=== PATIENT | male | born 1965 | race Asian ===

== ENCOUNTER 2021-01-08 21:37 | Emergency (ER) | payer MEDICARE ==
--- NOTE | 2021-01-08 23:14 | Emergency Department Report ---
ED Psych HPI - General Chief Complaint: Psych Stated Complaint: MH Time Seen by Provider: 01/08/21 22:12 Source: patient Mode of arrival: Ambulatory - History of Present Illness Initial Comments: Patient 55-year-old F Zambian male with past medical history schizophrenia who is presenting with suicidal ideations. Patient states that for the last several days he is been having thoughts that he should shoot himself in the head. Patient does not have a gun in the home. Patient states he is compliant with his medications and is not sure why he is having these thoughts. Denies any homicidal ideations. No auditory or visual hallucinations at this time - Related Data Previous Rx's Medication Instructions Recorded Last Taken Type Quetiapine Fumarate [SEROquel] 50 mg PO BID #60 tab 01/09/21 Unknown Rx buPROPion [Wellbutrin] 75 mg PO DAILY #30 tab 01/09/21 Unknown Rx Allergies Allergy/AdvReac Type Severity Reaction Status Date / Time No Known Allergies Allergy Verified 01/08/21 22:00 ED Review of Systems ROS: Stated complaint: MH Other details as noted in HPI Comment: All other systems reviewed and negative ED Past Medical Hx - Past Medical History Previous Medical History?: Yes Hx Hypertension: Yes - Surgical History Past Surgical History?: No - Social History Smoking Status: Never Smoker Substance Use Type: None - Medications Home Medications: Home Medications Medication Instructions Recorded Confirmed Last Taken Type Quetiapine Fumarate [SEROquel] 50 mg PO BID #60 tab 01/09/21 Unknown Rx buPROPion [Wellbutrin] 75 mg PO DAILY #30 tab 01/09/21 Unknown Rx ED Physical Exam - General Limitations: No Limitations General appearance: alert, in no apparent distress - Head Head exam: Present: atraumatic, normocephalic - Eye Eye exam: Present: normal appearance, PERRL, EOMI - ENT ENT exam: Present: mucous membranes moist - Neck Neck exam: Present: normal inspection - Respiratory Respiratory exam: Present: normal lung sounds bilaterally. Absent: respiratory distress, wheezes, rales, rhonchi - Cardiovascular Cardiovascular Exam: Present: regular rate, normal rhythm, normal heart sounds. Absent: systolic murmur, diastolic murmur, rubs, gallop - GI/Abdominal GI/Abdominal exam: Present: soft, normal bowel sounds. Absent: distended, tenderness, guarding, rebound - Rectal Rectal exam: Present: deferred - Extremities Exam Extremities exam: Present: normal inspection - Back Exam Back exam: Present: normal inspection - Neurological Exam Neurological exam: Present: alert, oriented X3 - Psychiatric Psychiatric exam: Present: normal affect, normal mood, suicidal ideation - Skin Skin exam: Present: warm, dry, intact, normal color. Absent: rash ED Course Vital Signs 01/08/21 01/08/21 01/08/21 22:01 22:06 23:35 Temperature 98.5 F 98.0 F Pulse Rate 95 H 75 Respiratory 18 18 Rate Blood Pressure 127/78 133/78 [Right] O2 Sat by Pulse 98 98 Oximetry 01/09/21 01/09/21 01/09/21 01:59 02:00 03:00 Temperature 98.5 F 98.3 F 98.0 F Pulse Rate 106 H 80 68 Respiratory 18 18 19 Rate Blood Pressure 139/97 140/89 133/78 [Right] O2 Sat by Pulse 99 99 100 Oximetry 01/09/21 01/09/21 01/09/21 04:00 05:00 06:00 Temperature 97.0 F L 97.3 F L 97.6 F Pulse Rate 79 81 73 Respiratory 17 18 18 Rate Blood Pressure 140/70 138/70 140/77 [Right] O2 Sat by Pulse 96 97 98 Oximetry 01/09/21 09:04 Temperature 98.8 F Pulse Rate 77 Respiratory 18 Rate Blood Pressure 149/99 [Right] O2 Sat by Pulse 100 Oximetry - Reevaluation(s) Reevaluation #1: 01/08/21 23:42 Patient is medically cleared at this time for mental health assessment Reevaluation #2: 02/20/21 03:45 Psychiatric Consult Note Patient Name: CAL DAVILA Date of : 1965 Patient Status: Emergency Emergency Provider: GABBY MCCLENDON Date: 01/09/21 09:15 Initialization Date: 01/09/21 09:15 History of Present Illness - Reason for Consult Consult date: 01/09/21 Reason for consult: SI, drugs, alcohol - History of Present Psychiatric Illness Cal Davila is a 55y/o male patient who states he was brought to the hospital by the chronic manager of his fdc treatment facility; [facility]. The patient's symptoms seem to correlate with his housing issue. The patient says because he relapsed and they told him he had to get clean before he came back. He says he's been "binge drinking and doing cocaine." The patient says he started feeling suicidal after doing the drugs. When asked was he suicidal, he says "on and off." He then says he's been feeling like this for "about a month and a half." The patient says he is now homeless and "that's what brought on the suicidal thoughts." He is calm, cooperative and polite. He says "I still feel like the drugs are in my system a little." The patient is asking to go to "the [facility] in [place]." I told him that we did not transfer there but he would have to go there himself. He says he was diagnosed with depression and says he ran out of his meds about 2 months ago. He denies hallucinations of any kind. Psych History Diagnoses: MDD Suicide attempts or Self-harm behavior: Denies Prior psychiatric hospitalizations: Yes Substance Abuse history: Cocaine, alcohol Previous psychiatric medications tried: Seroquel, welbutrin Outpatient treatment: not at present PAST MEDICAL HISTORY: none reported Family Psychiatric History: None reported or documented SOCIAL HISTORY Marital Status: Living Arrangements: homeless, recently at "[facility] but told needed to get clean." Employment Status: Unemployed Access to guns/weapons: Denies Education: History of Abuse: Denies Legal History: Denies REVIEW OF SYSTEMS Constitutional: Negative for weight loss ENT: Negative for stridor Respiratory: Negative for cough or hemoptysis All other systems reviewed and are negative MENTAL STATUS EXAMINATION General Appearance and Behavior: Age appropriate, good hygiene, wearing appropriate clothes, calm, cooperative, polite and pleasant Cooperation: cooperative Psychomotor Behavior: unremarkable and within normal limits Mood: okay Affect and affective range: congruent with mood Thought Process: Goal directed Thought Content: None Speech: Normal volume, Regular rate and rhythm, Suicidal Ideation: on and off for about a month and a half Homicidal Ideation: Denies Hallucinations: Denies Delusions: None elicited Impulse Control: Limited Insight and Judgment: Limited Memory: Normal, Attention: Normal Orientation: Alert, oriented Assessment and Plan (1) Cocaine Dependence (2) Major Depressive Disorder Treatment plan Seroquel 50mg po BID Wellbutrin 75mg po daily Risks, benefits and alternatives of medications discussed with the patient, questions answered and consent obtained from patient. PSYCHOTHERAPY: Supportive psychotherapy provided MEDICAL: Per primary team DELIRIUM PRECAUTIONS: Please re-orient patient frequently, keep lights on during the day, and minimize benzodiazepines and opiates as these medications could worsen patient's confusion. MANAGER EXPORT: Defer to primary Disposition: Do not recommend acute psychiatric inpatient treatment. The patient understands that if suicidal thoughts are to reoccur he is to seek immediate assistance. The patient to abstain from all illicit drug use The band splitter to give the patient all necessary outpatient resources including the place he mentioned in [place], drug/alcohol rehab, CBT, med management, shelters and group homes, safety plan Provide transportation pass if needed The patient to abstain from all illicit drug use and alcohol Case staffed with Dr. Yfn LOERA Medical Decision Making - Lab Data Result diagrams: 01/08/21 22:47 01/08/21 22:47 Critical care attestation.: If time is entered above; I have spent that time in minutes in the direct care of this critically ill patient, excluding procedure time. ED Disposition Clinical Impression: Cocaine dependence, Major depressive disorder Disposition: HOME / SELF CARE / HOMELESS Is pt being admited?: No Does the pt Need Aspirin: No Condition: Stable Additional Instructions: SUBSTANCE ABUSE PROGRAMS: [facility]: Location: [place], [place] [facility]! Address: [address] [place] [address] [facility]: Address: [address] [place] [address] [facility]: Address: [address] [place] [address] [facility]: Address: [address] [place] [address] [facility] Address: [address] [place] [address]. Please contact above numbers to attempt placement into free based program. Medicaid Programs: [facility]: Address: [address] [place] [address] [facility]: Address: [address] [place] [address] HOMELESS RESOURCES: [facility] NEED HELP? If you are in need of help or know someone who does, please contact us at [email or web address] call , or come to our offices at [address] [place] [address], [place] [address], Monday-Monday beginning 9:30 AM-1:30 PM -Support services help people with getting identification and legal documents -Homeless verification letter -Facesheet (if needed) [facility] Males only Admission at 7am Mon to Mon Address: [address] [place] [address] Client Engagement [phone] Regular program admission occurs Monday through Monday at 7:00 amand operates on a first come, first serve basis.Because we cant anticipate program availability in advance andprogram spots are in high demand, we recommend arriving early. Space fills up fast! Next steps can include: Assignment to a [facility] program bed Connection to and placement in a partner program, or Referral to a partner agency [facility] [place] Admission at 4:30pm daily Address: [address] [place] [address] [facility] Services Admission from 8am to 10am Daily No intake until 03/30/20 Address: [place] [address] Professional and Agency Contacts To help [facility] (24/10) [place] Crisis Line: Suicide Prevention Line: Crisis Text Line: Text START to 843144 Emergency: 911 Outpatient COMMUNITY Behavioral Health Resources: [place]: [facility] [address] [place], [place] [address] [place]: [facility] [address] [place] [address] Monday thru Monday - 8am - 5pm Call to schedule an assessment for mental health and substance abuse programs [facility] Address: [address] [place], [place] [address] Monday thru Monday- 7am-2pm [facility] Address: [address] [place], [place] [address] Monday thru Monday: 8:30AM-5PM Prescriptions: Quetiapine Fumarate [SEROquel] 50 mg PO BID #60 tab buPROPion [Wellbutrin] 75 mg PO DAILY #30 tab Referrals: PRIMARY CARE, [Primary Care Provider] - 3-5 Days
[2021-01-08 23:28] LABS: Basophils # (Auto) 0.1 K/mm3 (0.0-0.1); Basophils % (Auto) 0.9 % (0.0-1.8); Eosinophils # (Auto) 0.1 K/mm3 (0.0-0.4); Eosinophils % (Auto) 1.4 % (0.0-4.3); Hematocrit 37.2 % (35.5-45.6); Hemoglobin 12.9 gm/dl (11.8-15.2); Lymphocytes # (Auto) 2.2 K/mm3 (1.2-5.4); Lymphocytes % (Auto) 37.7 % (13.4-35.0); Mean Corpuscular HGB Conc 35 % (32-34); Mean Corpuscular Volume 81 fl (84-94); Monocytes # (Auto) 0.7 K/mm3 (0.0-0.8); Monocytes % (Auto) 11.3 % (0.0-7.3); Platelet Count 260 K/mm3 (140-440); Red Blood Count 4.61 M/mm3 (3.65-5.03); Red Cell Distribution Width 17.3 % (13.2-15.2)
[2021-01-08 23:31] LABS: BUN/Creatinine Ratio 13; Blood Urea Nitrogen 16 mg/dL (9-20); Calcium 9.2 mg/dL (8.4-10.2); Hemolysis Index 1
[2021-01-09 09:07] VITALS: BP 149/99
--- NOTE | 2021-01-09 09:24 | Consultation ---
History of Present Illness - Reason for Consult Consult date: 01/09/21 Reason for consult: SI, drugs, alcohol - History of Present Psychiatric Illness Cristino Davila is a 55y/o male patient who states he was brought to the hospital by the manager integration of his retirement treatment facility; The [facility]. The patient's symptoms seem to correlate with his housing issue. The patient says because he relapsed and they told him he had to get clean before he came back. He says he's been "binge drinking and doing cocaine." The patient says he started feeling suicidal after doing the drugs. When asked was he suicidal, he says "on and off." He then says he's been feeling like this for "about a month and a half." The patient says he is now homeless and "that's what brought on the suicidal thoughts." He is calm, cooperative and polite. He says "I still feel like the drugs are in my system a little." The patient is asking to go to "the [facility] in [place]." I told him that we did not transfer there but he would have to go there himself. He says he was diagnosed with depression and says he ran out of his meds about 2 months ago. He denies hallucinations of any kind. Psych History Diagnoses: MDD Suicide attempts or Self-harm behavior: Denies Prior psychiatric hospitalizations: Yes Substance Abuse history: Cocaine, alcohol Previous psychiatric medications tried: Seroquel, welbutrin Outpatient treatment: not at present PAST MEDICAL HISTORY: none reported Family Psychiatric History: None reported or documented SOCIAL HISTORY Marital Status: Living Arrangements: homeless, recently at "[facility] but told needed to get clean." Employment Status: Unemployed Access to guns/weapons: Denies Education: History of Abuse: Denies Legal History: Denies REVIEW OF SYSTEMS Constitutional: Negative for weight loss ENT: Negative for stridor Respiratory: Negative for cough or hemoptysis All other systems reviewed and are negative MENTAL STATUS EXAMINATION General Appearance and Behavior: Age appropriate, good hygiene, wearing appropriate clothes, calm, cooperative, polite and pleasant Cooperation: cooperative Psychomotor Behavior: unremarkable and within normal limits Mood: okay Affect and affective range: congruent with mood Thought Process: Goal directed Thought Content: None Speech: Normal volume, Regular rate and rhythm, Suicidal Ideation: on and off for about a month and a half Homicidal Ideation: Denies Hallucinations: Denies Delusions: None elicited Impulse Control: Limited Insight and Judgment: Limited Memory: Normal, Attention: Normal Orientation: Alert, oriented Assessment and Plan (1) Cocaine Dependence (2) Major Depressive Disorder Treatment plan Seroquel 50mg po BID Wellbutrin 75mg po daily Risks, benefits and alternatives of medications discussed with the patient, questions answered and consent obtained from patient. PSYCHOTHERAPY: Supportive psychotherapy provided MEDICAL: Per primary team DELIRIUM PRECAUTIONS: Please re-orient patient frequently, keep lights on during the day, and minimize benzodiazepines and opiates as these medications could worsen patient's confusion. GUEST ADVISOR: Defer to primary Disposition: Do not recommend acute psychiatric inpatient treatment. The patient understands that if suicidal thoughts are to reoccur he is to seek immediate assistance. The patient to abstain from all illicit drug use The transfer and line up worker to give the patient all necessary outpatient resources including the place he mentioned in [place], drug/alcohol rehab, CBT, med management, shelters and group homes, safety plan Provide transportation pass if needed The patient to abstain from all illicit drug use and alcohol Case staffed with Dr. Coulter Medications and Allergies Allergies Allergy/AdvReac Type Severity Reaction Status Date / Time No Known Allergies Allergy Verified 01/08/21 22:00 Home Medications Medication Instructions Recorded Confirmed Last Taken Type Quetiapine Fumarate [SEROquel] 50 mg PO BID #60 tab 01/09/21 Unknown Rx buPROPion [Wellbutrin] 75 mg PO DAILY #30 tab 01/09/21 Unknown Rx Mental Status Exam - Vital signs Last Vital Signs Temp 98.8 F 01/09/21 09:04 Pulse 77 01/09/21 09:04 Resp 18 01/09/21 09:04 BP 149/99 01/09/21 09:04 Pulse Ox 100 01/09/21 09:04 Results Result Diagrams: 01/08/21 22:47 01/08/21 22:47 Abnormal lab results 01/08/21 01/08/21 01/08/21 Range/Units 22:47 22:47 22:47 MCV 81 L (84-94) fl MCHC 35 H (32-34) % RDW 17.3 H (13.2-15.2) % Lymph % (Auto) 37.7 H (13.4-35.0) % Fulton % (Auto) 11.3 H (0.0-7.3) % Glucose 108 H (75-100) mg/dL Salicylates < 0.3 L (2.8-20.0) mg/dL Acetaminophen (10.0-30.0) ug/mL 01/08/21 Range/Units 22:47 MCV (84-94) fl MCHC (32-34) % RDW (13.2-15.2) % Lymph % (Auto) (13.4-35.0) % Fulton % (Auto) (0.0-7.3) % Glucose (75-100) mg/dL Salicylates (2.8-20.0) mg/dL Acetaminophen 5.0 L (10.0-30.0) ug/mL All other labs normal.
[2021-01-09 09:51] LABS: Bilirubin,Urine NEG (Negative); Blood,Urine NEG (Negative); Color,Urine Yellow (Yellow); Protein,Urine <15 mg/dL mg/dL (Negative); Urobilinogen,Urine < 2.0 mg/dL (<2.0)
[2021-01-09 09:59] LABS: Amphetamine Screen,Urine Negative; Benzodiazepines Screen,Urine Negative; Cannabinoid Screen,Urine Negative; Methadone Screen,Urine Negative; Opiate Screen,Urine Negative
[2021-01-09 10:39] LABS: Cocaine Screen,Urine Positive
== END 2021-01-09 11:42 | disposition home or self-care (01) ==
LOC: ED 21:37
DX: R45.851 Suicidal ideations (principal); Z20.822 Contact with and (suspected) exposure to COVID-19; I10 Essential (primary) hypertension
CPT/HCPCS: 36415; 80048; 80307; 81001; 85025; 99284; U0003; 80320; G0480

== ENCOUNTER 2021-04-09 22:07 | Emergency (ER) | payer MEDICARE ==
[2021-04-10] MEDS ORDERED: oxyCODONE /ACETAMINOPHEN 5-325MG TAB PO ONE (03:39)
[2021-04-10] MEDS ORDERED: predniSONE 20 MG TAB PO ONE (03:39)
[2021-04-10] MEDS ORDERED: KETOROLAC 60 MG/2 ML INJ IM ONE (03:39)
[2021-04-10] MEDS ORDERED: COLCHICINE 0.6 MG TAB PO ONE ×2 (03:39→04:30)
[2021-04-10] MEDS ORDERED: ONDANSETRON 4 MG ODT TAB PO ONE (03:39)
--- NOTE | 2021-04-10 04:47 | Emergency Department Report ---
ED Extremity Problem HPI - General Chief complaint: Extremity Injury, Lower Stated complaint: GOUT FLARE Source: EMS Mode of arrival: Stretcher Limitations: Physical Limitation - History of Present Illness Initial comments: Patient is a 55-year-old -English male with a history of gouty arthropathy and hypertension who presents to the ED with complaint of acute onset persistent severe right foot and right first MTP joint pain with swelling for the last 3 days. Patient states that he ran out of his colchicine 0.6 mg about a month ago and has not had any prescriptions of the same and states that colchicine usually helps him whenever he has gout flare pain. Patient denies traumatic injury, fever, chills, nausea and vomiting, dizziness, syncope, cough, sore throat, chest pain or shortness of breath, back pain or heavy lifting, numbness and tingling or weakness of lower extremities bilaterally. MD Complaint: extremity pain (Right foot pain and swelling), extremity swelling (Right first MTP joint pain with swelling), joint swelling, joint paint (Right first MTP joint pain and swelling) -: Sudden, days(s) (3) Location: right, lower extremity (Foot and first MTP joint pain), toe (Right first MTP joint pain) History of Same: Yes (Chronic gouty arthropathy) -: No fever, No associated dyspnea, No associated chest pain Radiation: distal Severity scale (0 -10): 8 Quality: aching, sharp Consistency: constant Improves with: nothing Worsens with: weight bearing, walking, exertion, palpation Associated Symptoms: denies other symptoms, arthralgias (Distal right first MTP joint pain). denies: chest pain, shortness of breath, fever, myalgias, rash - Related Data Previous Rx's Medication Instructions Recorded Last Taken Type Quetiapine Fumarate [SEROquel] 50 mg PO BID #60 tab 01/09/21 Unknown Rx buPROPion [Wellbutrin] 75 mg PO DAILY #30 tab 01/09/21 Unknown Rx Colchicine 0.6 mg PO DAILY #30 04/10/21 Unknown Rx Indomethacin 50 mg PO Q8H PRN #90 cap 04/10/21 Unknown Rx predniSONE [Deltasone] 60 mg PO QDAY #15 tab 04/10/21 Unknown Rx Allergies Allergy/AdvReac Type Severity Reaction Status Date / Time No Known Allergies Allergy Verified 01/08/21 22:00 ED Review of Systems ROS: Stated complaint: GOUT FLARE Other details as noted in HPI Constitutional: denies: chills, fever Eyes: denies: eye pain, eye discharge, vision change ENT: denies: ear pain, throat pain Respiratory: denies: cough, shortness of breath, wheezing Cardiovascular: denies: chest pain, palpitations Endocrine: no symptoms reported Gastrointestinal: denies: abdominal pain, nausea, diarrhea Genitourinary: denies: urgency, dysuria Musculoskeletal: joint swelling (Swollen, painful right great toe and right first MTP joint ), arthralgia (Right foot and first MTP joint pain). denies: back pain, myalgia Skin: denies: rash, lesions Neurological: denies: headache, weakness, paresthesias Psychiatric: denies: anxiety, depression Hematological/Lymphatic: denies: easy bleeding, easy bruising ED Past Medical Hx - Past Medical History Hx Hypertension: Yes - Social History Smoking Status: Never Smoker Substance Use Type: None - Medications Home Medications: Home Medications Medication Instructions Recorded Confirmed Last Taken Type Quetiapine Fumarate [SEROquel] 50 mg PO BID #60 tab 01/09/21 Unknown Rx buPROPion [Wellbutrin] 75 mg PO DAILY #30 tab 01/09/21 Unknown Rx Colchicine 0.6 mg PO DAILY #30 04/10/21 Unknown Rx Indomethacin 50 mg PO Q8H PRN #90 cap 04/10/21 Unknown Rx predniSONE [Deltasone] 60 mg PO QDAY #15 tab 04/10/21 Unknown Rx ED Physical Exam - General Limitations: Physical Limitation General appearance: alert, in no apparent distress - Head Head exam: Present: atraumatic, normocephalic, normal inspection - Eye Eye exam: Present: normal appearance, PERRL, EOMI Pupils: Present: normal accommodation - ENT ENT exam: Present: normal exam, normal orophraynx, mucous membranes moist, TM's normal bilaterally, normal external ear exam - Neck Neck exam: Present: normal inspection, full ROM. Absent: tenderness - Respiratory Respiratory exam: Present: normal lung sounds bilaterally. Absent: respiratory distress, wheezes, rales, rhonchi, chest wall tenderness, decreased breath sounds, prolonged expiratory - Cardiovascular Cardiovascular Exam: Present: regular rate, normal rhythm, normal heart sounds. Absent: systolic murmur, diastolic murmur, rubs, gallop - GI/Abdominal GI/Abdominal exam: Present: soft, normal bowel sounds. Absent: tenderness, guarding, rebound, rigid, organomegaly, mass - Extremities Exam Extremities exam: Present: normal inspection, full ROM, tenderness (Palpable severe right great toe and right first MTP joint tenderness with mild swelling), normal capillary refill, joint swelling. Absent: pedal edema, calf tenderness, other - Back Exam Back exam: Present: normal inspection, full ROM. Absent: tenderness, CVA tenderness (R), CVA tenderness (L), muscle spasm, paraspinal tenderness - Neurological Exam Neurological exam: Present: alert, oriented X3, CN II-XII intact, normal gait, reflexes normal - Psychiatric Psychiatric exam: Present: normal affect, normal mood - Skin Skin exam: Present: warm, dry, intact, normal color. Absent: rash ED Course Vital Signs 04/09/21 04/10/21 22:42 04:01 Temperature 98.4 F Pulse Rate 98 H Respiratory 18 18 Rate Blood Pressure 160/98 [Left] O2 Sat by Pulse 99 Oximetry ED Medical Decision Making - Medical Decision Making This is a 55-year-old -English male with a history of gouty arthropathy and hypertension who presents to the ED with complaint of acute onset persistent severe right foot and right first MTP joint pain with swelling for the last 3 days. Patient states that he ran out of his colchicine 0.6 mg about a month ago and has not had any prescriptions of the same and states that colchicine usually helps him whenever he has gout flare pain. In the ED, patient is alert and oriented x3 and is not in any distress. Patient however appears to be in significant pain during the physical exam. Patient was treated for pain in the ED and on reevaluation, patient's pain is moderately controlled. Patient symptoms are likely due to acute gouty arthropathy with flareup. Patient was therefore discharged home on medications and advised to follow-up with his primary care physician in 7 to 10 days for reevaluation or return to the ED immediately if symptoms get worse. - Differential Diagnosis Gouty arthropathy; osteoarthritis; foot sprain; muscle strain Critical care attestation.: If time is entered above; I have spent that time in minutes in the direct care of this critically ill patient, excluding procedure time. ED Disposition Clinical Impression: Chronic gouty arthropathy, Right foot pain Disposition: HOME / SELF CARE / HOMELESS Is pt being admited?: No Does the pt Need Aspirin: No Condition: Stable Instructions: Low-Purine Eating Plan, How to Use Cold Therapy, [id number], Uric Acid Nephropathy Additional Instructions: Your symptoms are likely due to your acute on chronic gouty arthropathy. Therefore take medication as advised, drink plenty of fluids, follow-up with your primary care physician in 7 to 10 days for reevaluation. Return to the ED immediately if symptoms get worse. Prescriptions: Colchicine 0.6 mg PO DAILY #30 predniSONE [Deltasone] 60 mg PO QDAY #15 tab Indomethacin 50 mg PO Q8H PRN #90 cap PRN Reason: Pain , Severe (7-10) Referrals: [facility] [Provider Group] - 7-10 days Time of Disposition: 04:49 Print Language: CENTRAL AFRICAN
[2021-04-10 05:26] VITALS: BP 142/86
== END 2021-04-10 05:26 | disposition home or self-care (01) ==
LOC: ED 22:07
DX: M10.9 Gout, unspecified (principal); G89.29 Other chronic pain; I10 Essential (primary) hypertension; Z79.899 Other long term (current) drug therapy
CPT/HCPCS: 96372; 99283; J1885; J7512; J3490; Q0162

== ENCOUNTER 2021-06-07 15:19 | Emergency (ER) | payer MEDICARE ==
[2021-06-07] MEDS ORDERED: KETOROLAC 60 MG/2 ML INJ IM ONE (19:46)
[2021-06-07] MEDS ORDERED: predniSONE 20 MG TAB PO ONE (19:46)
--- NOTE | 2021-06-07 19:51 | Emergency Department Report ---
ED Extremity Problem HPI - General Chief complaint: Extremity Injury, Lower Stated complaint: GOUT Time Seen by Provider: 06/07/21 19:38 Source: patient Mode of arrival: Ambulatory Limitations: No Limitations - History of Present Illness Initial comments: 55-year-old black male presents to the emergency department for evaluation of right great toe pain that started 2 days ago. He states that he has a history of gout and his pain is consistent with the pain he had whenever he has a gout flare. He denies injury. He states that he has been taking daily colchicine at home as prescribed by his primary care provider without improvement. MD Complaint: extremity pain, extremity swelling -: Gradual, days(s) Location: right (To), toe History of Same: Yes -: No fever, No associated dyspnea, No associated chest pain Severity scale (0 -10): 10 Quality: aching, constant Consistency: constant Improves with: nothing Associated Symptoms: denies: chest pain, shortness of breath, fever, myalgias, arthralgias, rash - Related Data Previous Rx's Medication Instructions Recorded Last Taken Type Quetiapine Fumarate [SEROquel] 50 mg PO BID #60 tab 01/09/21 Unknown Rx buPROPion [Wellbutrin] 75 mg PO DAILY #30 tab 01/09/21 Unknown Rx Colchicine 0.6 mg PO DAILY #30 04/10/21 Unknown Rx Indomethacin 50 mg PO Q8H PRN #90 cap 04/10/21 Unknown Rx predniSONE [Deltasone] 60 mg PO QDAY #15 tab 04/10/21 Unknown Rx Indomethacin [Indocin] 25 mg PO Q8H PRN #21 cap 06/07/21 Unknown Rx predniSONE [Deltasone] 50 mg PO QDAY #5 tab 06/07/21 Unknown Rx Allergies Allergy/AdvReac Type Severity Reaction Status Date / Time No Known Allergies Allergy Verified 06/07/21 18:36 ED Review of Systems ROS: Stated complaint: GOUT Other details as noted in HPI Comment: All other systems reviewed and negative Constitutional: denies: fever Eyes: denies: eye pain, vision change ENT: denies: ear pain Respiratory: no symptoms reported. denies: shortness of breath Cardiovascular: denies: chest pain, palpitations, dyspnea on exertion, orthop lien, syncope Endocrine: no symptoms reported Gastrointestinal: denies: abdominal pain, nausea, vomiting, diarrhea, hematemesis, melena, hematochezia Genitourinary: denies: urgency, dysuria, frequency, hematuria, discharge Musculoskeletal: denies: back pain Skin: denies: rash, lesions Neurological: denies: headache, weakness, numbness, paresthesias Psychiatric: denies: anxiety, depression Hematological/Lymphatic: denies: easy bleeding, easy bruising ED Past Medical Hx - Past Medical History Previous Medical History?: Yes Hx Hypertension: Yes Additional medical history: gout - Social History Smoking Status: Never Smoker Substance Use Type: None - Medications Home Medications: Home Medications Medication Instructions Recorded Confirmed Last Taken Type Quetiapine Fumarate [SEROquel] 50 mg PO BID #60 tab 01/09/21 Unknown Rx buPROPion [Wellbutrin] 75 mg PO DAILY #30 tab 01/09/21 Unknown Rx Colchicine 0.6 mg PO DAILY #30 04/10/21 Unknown Rx Indomethacin 50 mg PO Q8H PRN #90 cap 04/10/21 Unknown Rx predniSONE [Deltasone] 60 mg PO QDAY #15 tab 04/10/21 Unknown Rx Indomethacin [Indocin] 25 mg PO Q8H PRN #21 cap 06/07/21 Unknown Rx predniSONE [Deltasone] 50 mg PO QDAY #5 tab 06/07/21 Unknown Rx ED Physical Exam - General Limitations: No Limitations General appearance: alert, in no apparent distress - Head Head exam: Present: atraumatic, normocephalic - Eye Eye exam: Present: normal appearance. Absent: conjunctival injection - Neck Neck exam: Present: normal inspection - Respiratory Respiratory exam: Present: normal lung sounds bilaterally. Absent: respiratory distress, wheezes, rales, rhonchi, chest wall tenderness, accessory muscle use - Cardiovascular Cardiovascular Exam: Present: regular rate, normal heart sounds - GI/Abdominal GI/Abdominal exam: Present: soft, normal bowel sounds. Absent: distended, tenderness, guarding, rebound, rigid - Expanded Lower Extremity Exam Right Foot/Toe exam: Present: tenderness, swelling, erythema Neuro vascular tendon exam: Absent: no vascular compromise, pulse deficit, abnormal cap refill Gait: Positive: observed and limited by pain 1 - Entire toe noted to be edematous, erythematous, warm to touch, and tender to touch. - Back Exam Back exam: Present: normal inspection - Neurological Exam Neurological exam: Present: alert, oriented X3 - Psychiatric Psychiatric exam: Present: normal affect, normal mood - Skin Skin exam: Present: warm, dry, intact, normal color ED Course Vital Signs 06/07/21 18:32 Temperature 98.2 F Pulse Rate 86 Respiratory 17 Rate Blood Pressure 138/93 O2 Sat by Pulse 100 Oximetry ED Medical Decision Making - Medical Decision Making 55-year-old black male presents to the emergency department for evaluation of right great toe pain that started 2 days ago. He states that he has a history of gout and his pain is consistent with the pain he had whenever he has a gout flare. He denies injury. He states that he has been taking daily colchicine at home as prescribed by his primary care provider without improvemen Exam and patient description consistent with gout flare. Patient will be given 60 mg of Toradol IM and 60 mg of prednisone p.o. while in the emergency department and sent home to continue his daily colchicine along with 5-day course of 50 mg of prednisone daily and indomethacin as needed for pain. He was educated on low purine diet. He was advised to take medications as prescribed follow-up with primary care provider if no improvement or worsening symptoms. He verbalized understanding of and agreement with plan of care. Critical care attestation.: If time is entered above; I have spent that time in minutes in the direct care of this critically ill patient, excluding procedure time. ED Disposition Clinical Impression: Gout attack Qualifiers: Gout site: toe Gout etiology: unspecified cause Laterality: right Qualified Code(s): M10.9 - Gout, unspecified Disposition: HOME / SELF CARE / HOMELESS Is pt being admited?: No Does the pt Need Aspirin: No Condition: Stable Instructions: Low-Purine Eating Plan Additional Instructions: Take medications as prescribed. Continue home colchicine. Follow-up with primary care provider for further management. Prescriptions: predniSONE [Deltasone] 50 mg PO QDAY #5 tab Indomethacin [Indocin] 25 mg PO Q8H PRN #21 cap PRN Reason: Pain, Moderate (4-6) Referrals: NICCI FRENCH MD [Referring] - 3-5 Days Time of Disposition: 19:50
[2021-06-07 21:24] VITALS: BP 132/89
== END 2021-06-07 20:37 | disposition home or self-care (01) ==
LOC: ED 15:19
DX: M10.9 Gout, unspecified (principal); I10 Essential (primary) hypertension
CPT/HCPCS: 96372; 99282; J1885

== ENCOUNTER 2021-10-22 23:35 | Emergency (ER) | payer MEDICARE | END 2021-10-22 23:57 | disposition left against medical advice (07) | LOC: ED 23:35 | DX: F41.0 Panic disorder [episodic paroxysmal anxiety] (principal); Z53.21 Procedure and treatment not carried out due to patient leaving prior to being seen by health care provider ==

== ENCOUNTER 2021-10-23 08:42 | Emergency (ER) | payer MEDICARE ==
[2021-10-23 10:16] LABS: Basophils % (Auto) 0.6 % (0.0-1.8); Eosinophils # (Auto) 0.2 K/mm3 (0.0-0.4); Eosinophils % (Auto) 3.9 % (0.0-4.3); Hematocrit 38.6 % (35.5-45.6); Hemoglobin 13.4 gm/dl (11.8-15.2); Lymphocytes % (Auto) 38.1 % (13.4-35.0); Mean Corpuscular HGB Conc 35 % (32-34); Mean Corpuscular Volume 79 fl (84-94); Monocytes # (Auto) 0.7 K/mm3 (0.0-0.8); Monocytes % (Auto) 12.4 % (0.0-7.3); Platelet Count 232 K/mm3 (140-440); Red Blood Count 4.86 M/mm3 (3.65-5.03)
[2021-10-23 10:38] LABS: BUN/Creatinine Ratio 8; Blood Urea Nitrogen 9 mg/dL (9-20); Calcium 9.2 mg/dL (8.4-10.2); Hemolysis Index 10
--- NOTE | 2021-10-23 11:58 | Emergency Department Report ---
ED Psych HPI - General Chief Complaint: Psych Stated Complaint: RT FOOT GOUT/MH EVALUATION Time Seen by Provider: 10/23/21 10:06 Source: patient Mode of arrival: Wheelchair - History of Present Illness MD Complaint: suicidal ideation, feels depressed -: month(s) Associated Psychiatric Symptoms: depression, suicidal ideation History of same: Yes Quality: constant Improves With: none Worsens With: none - Related Data Previous Rx's Medication Instructions Recorded Last Taken Type Quetiapine Fumarate [SEROquel] 50 mg PO BID #60 tab 01/09/21 Unknown Rx buPROPion [Wellbutrin] 75 mg PO DAILY #30 tab 01/09/21 Unknown Rx Colchicine 0.6 mg PO DAILY #30 04/10/21 Unknown Rx Indomethacin 50 mg PO Q8H PRN #90 cap 04/10/21 Unknown Rx predniSONE [Deltasone] 60 mg PO QDAY #15 tab 04/10/21 Unknown Rx Indomethacin [Indocin] 25 mg PO Q8H PRN #21 cap 06/07/21 Unknown Rx predniSONE [Deltasone] 50 mg PO QDAY #5 tab 06/07/21 Unknown Rx Allergies Allergy/AdvReac Type Severity Reaction Status Date / Time No Known Allergies Allergy Verified 06/07/21 18:36 ED Review of Systems ROS: Stated complaint: RT FOOT GOUT/MH EVALUATION Other details as noted in HPI Constitutional: denies: chills, fever Eyes: denies: eye pain, eye discharge, vision change ENT: denies: ear pain, throat pain Respiratory: denies: cough, shortness of breath, wheezing Cardiovascular: denies: chest pain, palpitations Endocrine: no symptoms reported Gastrointestinal: denies: abdominal pain, nausea, diarrhea Genitourinary: denies: urgency, dysuria Musculoskeletal: denies: back pain, joint swelling, arthralgia Skin: denies: rash, lesions Neurological: denies: headache, weakness, paresthesias Psychiatric: denies: anxiety, depression Hematological/Lymphatic: denies: easy bleeding, easy bruising ED Past Medical Hx - Past Medical History Hx Hypertension: Yes Hx CVA: No Hx Psychiatric Treatment: Yes (MDD) Additional medical history: gout - Social History Smoking Status: Never Smoker Substance Use Type: None - Medications Home Medications: Home Medications Medication Instructions Recorded Confirmed Last Taken Type Quetiapine Fumarate [SEROquel] 50 mg PO BID #60 tab 01/09/21 Unknown Rx buPROPion [Wellbutrin] 75 mg PO DAILY #30 tab 01/09/21 Unknown Rx Colchicine 0.6 mg PO DAILY #30 04/10/21 Unknown Rx Indomethacin 50 mg PO Q8H PRN #90 cap 04/10/21 Unknown Rx predniSONE [Deltasone] 60 mg PO QDAY #15 tab 04/10/21 Unknown Rx Indomethacin [Indocin] 25 mg PO Q8H PRN #21 cap 06/07/21 Unknown Rx predniSONE [Deltasone] 50 mg PO QDAY #5 tab 06/07/21 Unknown Rx ED Physical Exam - General Limitations: No Limitations General appearance: alert, anxious - Head Head exam: Present: atraumatic, normocephalic - Eye Eye exam: Present: normal appearance - ENT ENT exam: Present: mucous membranes moist - Neck Neck exam: Present: normal inspection - Respiratory Respiratory exam: Present: normal lung sounds bilaterally. Absent: respiratory distress - Cardiovascular Cardiovascular Exam: Present: regular rate, normal rhythm. Absent: systolic murmur, diastolic murmur, rubs, gallop - GI/Abdominal GI/Abdominal exam: Present: soft, normal bowel sounds - Rectal Rectal exam: Present: deferred - Extremities Exam Extremities exam: Present: normal inspection - Back Exam Back exam: Present: normal inspection - Neurological Exam Neurological exam: Present: alert, oriented X3 - Psychiatric Psychiatric exam: Present: depressed, anxious, suicidal ideation - Skin Skin exam: Present: warm, dry, intact, normal color. Absent: rash ED Course Vital Signs 10/23/21 09:08 Temperature 97.5 F L Pulse Rate 74 Respiratory 18 Rate Blood Pressure 136/87 [Left] O2 Sat by Pulse 100 Oximetry ED Medical Decision Making - Lab Data Result diagrams: 10/23/21 09:41 10/23/21 09:41 - Medical Decision Making assessed by psych esvin mendoza OP Critical care attestation.: If time is entered above; I have spent that time in minutes in the direct care o f this critically ill patient, excluding procedure time. ED Disposition Clinical Impression: Gouty arthritis, Depression Disposition: 01 HOME / SELF CARE / HOMELESS Is pt being admited?: No Does the pt Need Aspirin: No Condition: Stable Additional Instructions: OUTPATIENT MENTAL HEALTH RESOURCES [facility] Whitney Paz MD: [address] [place] [address] [place] [address] [place] [address] [place] [facility]: [employer] [address] [place] [address] [place] [address] [phone] [facility]: [facility] Healthcare: [address] [address] [place] [address] [facility] [id number] [place] [facility]: Jose Galeano MD: [address] [facility] [id number] [facility]: [address] [place] [address] [phone] [place] CRISIS AND ACCESS LINE: Professional and Agency Contacts To help Resolve Crises (24/10) [place] Crisis Line: Suicide Prevention Line: Crisis Text Line: Text START to 088236 Emergency: 911 Outpatient COMMUNITY Behavioral Health Resources: [place]: [facility] [address] [place], [place] [address] [facility] [address] [place] [address] Monday thru Monday - 8am - 5pm Call to schedule an assessment for mental health and substance abuse programs [place]: [facility] Address: [address] [place] [address] Monday thru Monday- 7am-2pm [facility] Address: [address] [place] [address] Monday thrmonday: 8:30AM-5PM
[2021-10-23] MEDS ORDERED: ACETAMINOPHEN 500 MG TAB PO ONE (12:10)
[2021-10-23] MEDS ORDERED: predniSONE 20 MG TAB PO ONE (12:39)
[2021-10-23 13:22] VITALS: BP 115/62
--- NOTE | 2021-10-23 15:17 | Consultation ---
History of Present Illness - Reason for Consult Consult date: 10/23/21 Reason for consult: MHE - Chief Complaint Chief complaint: 55year old male was seen in the ER today. Patient states that he was brought in because he was having "panic attacks" and "pain" related to his gout. Pt states that he was having SI thoughts and this was triggered by the recent loss of his sister a couple of weeks ago. Patient admits to using Cocaine and alcohol recently and states that he was supposed to be at [facility] yesterday for their PHP but the vehicle broke down. Patient states that he is no longer having SI thoughts and will be going back to [facility] tomorrow, he also denies HI/AVH at this time. Patient will be cleared from psych point of view and 1013 rescinded. Psych History Diagnoses: MDD Suicide attempts or Self-harm behavior: Denies Prior psychiatric hospitalizations: Yes Substance Abuse history: Cocaine, alcohol Previous psychiatric medications tried: Seroquel, welbutrin Outpatient treatment: not at present PAST MEDICAL HISTORY: none reported Family Psychiatric History: None reported or documented SOCIAL HISTORY Marital Status: Living Arrangements: homeless Employment Status: Unemployed Access to guns/weapons: Denies Education: History of Abuse: Denies Legal History: Denies REVIEW OF SYSTEMS Constitutional: Negative for weight loss ENT: Negative for stridor Respiratory: Negative for cough or hemoptysis All other systems reviewed and are negative MENTAL STATUS EXAMINATION General Appearance and Behavior: Age appropriate, good hygiene, wearing appropriate clothes, calm, cooperative, polite and pleasant Cooperation: cooperative Psychomotor Behavior: unremarkable and within normal limits Mood: okay Affect and affective range: congruent with mood Thought Process: Goal directed Thought Content: None Speech: Normal volume, Regular rate and rhythm, Suicidal Ideation: Denies Homicidal Ideation: Denies Hallucinations: Denies Delusions: None elicited Impulse Control: Limited Insight and Judgment: Limited Memory: Normal, Attention: Normal Orientation: Alert, oriented Assessment and Plan (1) Cocaine Dependence (2) Major Depressive Disorder Treatment plan Risks, benefits and alternatives of medications discussed with the patient, questions answered and consent obtained from patient. PSYCHOTHERAPY: Supportive psychotherapy provided MEDICAL: Per primary team DELIRIUM PRECAUTIONS: Please re-orient patient frequently, keep lights on during the day, and minimize benzodiazepines and opiates as these medications could worsen patient's confusion. ADMISSIONS RN: Defer to primary Disposition: Do not recommend acute psychiatric inpatient treatment. The patient understands that if suicidal thoughts are to reoccur he is to seek immediate assistance. The patient to abstain from all illicit drug use The sorting grapple operator to give the patient all necessary outpatient resources drug/alcohol rehab, CBT, med management, shelters and group homes, safety plan Provide transportation pass if needed The patient to abstain from all illicit drug use and alcohol Case staffed with Dr. Coulter Medications and Allergies Allergies Allergy/AdvReac Type Severity Reaction Status Date / Time No Known Allergies Allergy Verified 06/07/21 18:36 Home Medications Medication Instructions Recorded Confirmed Last Taken Type Quetiapine Fumarate [SEROquel] 50 mg PO BID #60 tab 01/09/21 Unknown Rx buPROPion [Wellbutrin] 75 mg PO DAILY #30 tab 01/09/21 Unknown Rx Colchicine 0.6 mg PO DAILY #30 04/10/21 Unknown Rx Indomethacin 50 mg PO Q8H PRN #90 cap 04/10/21 Unknown Rx predniSONE [Deltasone] 60 mg PO QDAY #15 tab 04/10/21 Unknown Rx Indomethacin [Indocin] 25 mg PO Q8H PRN #21 cap 06/07/21 Unknown Rx predniSONE [Deltasone] 50 mg PO QDAY #5 tab 06/07/21 Unknown Rx Colchicine [Colcrys] 0.6 mg PO DAILY #10 tablet 10/23/21 Unknown Rx methylPREDNISolone [Medrol 4MG 4 mg PO DAILY #1 10/23/21 Unknown Rx DOSEPAK (21 tabs)] Mental Status Exam - Vital signs Last Vital Signs Temp 97.5 F L 10/23/21 09:08 Pulse 63 10/23/21 13:21 Resp 18 10/23/21 13:21 BP 115/62 10/23/21 13:21 Pulse Ox 99 10/23/21 13:21 Results Result Diagrams: 10/23/21 09:41 10/23/21 09:41 Abnormal lab results 10/23/21 10/23/21 10/23/21 Range/Units 09:41 09:41 09:41 MCV 79 L (84-94) fl MCHC 35 H (32-34) % RDW 16.0 H (13.2-15.2) % Lymph % (Auto) 38.1 H (13.4-35.0) % [place] % (Auto) 12.4 H (0.0-7.3) % Uric Acid (3.5-7.6) mg/dL Salicylates < 0.3 L (2.8-20.0) mg/dL Acetaminophen 5.0 L (10.0-30.0) ug/mL 10/23/21 Range/Units 09:41 MCV (84-94) fl MCHC (32-34) % RDW (13.2-15.2) % Lymph % (Auto) (13.4-35.0) % [place] % (Auto) (0.0-7.3) % Uric Acid 7.8 H (3.5-7.6) mg/dL Salicylates (2.8-20.0) mg/dL Acetaminophen (10.0-30.0) ug/mL All other labs normal.
[2021-10-23 18:50] LABS: Bilirubin,Urine NEG (Negative); Blood,Urine NEG (Negative); Color,Urine Yellow (Yellow); Protein,Urine <15 mg/dL mg/dL (Negative); Urobilinogen,Urine < 2.0 mg/dL (<2.0)
[2021-10-23 18:51] LABS: Bacteria,Urine 1+ /HPF (Negative); Mucus,Urine FEW /HPF
[2021-10-23 18:59] LABS: Amphetamine Screen,Urine Negative; Cannabinoid Screen,Urine Negative; Cocaine Screen,Urine Negative; Methadone Screen,Urine Negative; Opiate Screen,Urine Negative
[2021-10-23 19:00] LABS: Benzodiazepines Screen,Urine Positive
== END 2021-10-23 11:59 | disposition home or self-care (01) ==
LOC: ED 08:42
DX: F32.A Depression, unspecified (principal); M19.90 Unspecified osteoarthritis, unspecified site; I10 Essential (primary) hypertension; Z79.899 Other long term (current) drug therapy
CPT/HCPCS: 36415; 80048; 80307; 80320; 81001; 84550; 85025; 87086; 99283; G0480